=== PATIENT | male | born 1965 | race Two or more races ===

== ENCOUNTER 2023-11-25 14:04 | Outpatient (AMB) | payer OTHER, SELFPAY ==
--- NOTE | 2023-11-25 14:06 | A.OFFVIS_ITS ---
Intake Intake Visit Reasons: rectile dysfunction (confirmed) Intake Note: New Patient presents for initial visit for erectile dysfunction Urology Medications: none Blood Thinner: none Outsole Beveler Required: No Accompanied by: Self / Same As Patient Allergies No Known Allergies Allergy (Verified 11/25/23 22:55) Medication List - Last Reconciled 11/25/23 by SULLY Gibson dulaglutide (Trulicity) mg subcut empagliflozin (Jardiance) 10 mg PO DAILY glipizide ER 10 mg PO BID lisinopril-hydrochlorothiazide 20-25 mg 1 tab PO DAILY HPI HPI Comments History of Present Illness Details Ji is a very pleasant 58-year-old male patient of Dr. Hoffman. He has a past medical history of obesity, heartburn, hypertension, urolithiasis, fatty liver, diabetes mellitus, ED, anxiety, vitamin-D deficiency, and BPH. He presents to the office today as a new patient for his longstanding history of erectile dysfunction. In discussion with the patient today he reports having traveled to [place] approximately 2 years ago at which time he urgently came back due to a severe fungal infection he had been experiencing in his penis. He followed up with [facility] at which time he underwent a circumcision. He discusses feeling frustrated that ever since his circumcision he has been experiencing issues with erectile dysfunction. He reports then following up with [facility] at which time he underwent a redo of his circumcision and recommendations were made for oral therapy treatment of ED. He reports having trialed Cialis, Viagra, and vardenafil with no improvement in obtaining and maintaining erections. He also reports having trialed injection therapy with no benefits. He also discusses having trialed penile pump as well as penile ring. He reports at times he is able to obtain an erection while performing foreplay however it is not adequate for penetration. He does report sexual desire. He otherwise denies any bothersome urinary issues or concerns. He reports be happy with current voiding parameters. Discussed at length potential causes for erectile dysfunction as well as further workup and treatment options. In office urinalysis results reviewed with the patient today. [facility] Medical History Nonspecific reaction to tuberculin skin test without active tuberculosis Obesity Heartburn Family history of malignant neoplasm of digestive organs Hypertension Urolithiasis Bacterial infection due to Helicobacter pylori Benign prostate hyperplasia Pterygium Fatty liver Microalbuminuria Diabetes mellitus type 2 with neurological manifestations Erectile dysfunction due to diseases classified elsewhere Anxiety Personal history of COVID-19 Vitamin D deficiency Controlled diabetes mellitus with renal manifestations Review of Systems Const Reports no additional complaints Eyes Reports as per HPI ENT Reports no additional complaints Card Reports as per HPI Resp Reports no additional complaints GI Reports as per HPI Reports as per HPI Musc Reports no additional complaints Neuro Reports no additional complaints Psych Reports as per HPI Endo Reports as per HPI Chaka/Lymph Reports no additional complaints Aller/Immun Reports no additional complaints Physical Exam Const General: cooperative, healthy appearing, comfortable, no acute distress, well developed, alert and awake Nutritional Appearance: overweight Orientation/consciousness: patient oriented x3 Limitations: no limitations HEENT Head: Yes normal to inspection, Yes normocephalic and Yes atraumatic Ears: hearing grossly normal bilaterally Eyes General: appearance normal, both eyes and all related structures Neck Neck: Yes normal visual inspection and Yes trachea midline Chest Chest palpation & inspection: normal inspection of the chest Resp Effort & Inspection: normal respiratory effort and able to speak in complete sentences Cardio Rate: regular rate GI Inspection: Yes normal to inspection General: Yes no CVA tenderness Back/Spine/Pelvis Back: no CVA tenderness Skin General skin exam: no rashes or lesions noted Neuro General: patient oriented x3 Extrem General: Yes normal to inspection Psych Appearance: grossly normal and well kempt Mental Status: mental status grossly normal Speech and movement: Normal speech and movement present and Clear speech present Affect: normal affect Attitude: cooperative Thought process: Normal thought process present Thought content: Normal thought content present Insight: Fair insight present (Psych) Judgement: Fair judgement present (Psych) Results AMB Urinalysis, Automated UA Leukoctes 0 Elizabeth/uL Last Edit by cocone on 11/25/23 14:35 UA Nitrite Negative Last Edit by cocone on 11/25/23 14:35 UA Urobilinogen 0.2 mg/dL Last Edit by cocone on 11/25/23 14:35 UA Protein 30 mg/dL Last Edit by cocone on 11/25/23 14:35 UA pH 5.5 Last Edit by cocone on 11/25/23 14:35 UA Blood 0 Howie/uL Last Edit by Spring Santosamanda on 11/25/23 14:35 UA Specific Burgaw 1.020 Last Edit by Spring Souza on 11/25/23 14:35 UA Ketone Negative Last Edit by Spring Souza on 11/25/23 14:35 UA Bilirubin 0 mg/dL Last Edit by Spring Souza on 11/25/23 14:35 UA Glucose 1000 mg/dL Last Edit by Spring Souza on 11/25/23 14:35 Results Reviewed Results Reviewed: Laboratory Last Values Urine pH (Auto) 5.5 11/25/23 14:33 Specific Burgaw (Auto) 1.020 11/25/23 14:33 Urine Protein (Auto) 30 mg/dL 11/25/23 14:33 Glucose (UA)(Auto) 1000 mg/dL 11/25/23 14:33 Urine Ketones (Auto) Negative 11/25/23 14:33 Urine Blood (Auto) 0 Howie/uL 11/25/23 14:33 Urine Nitrite (Auto) Negative 11/25/23 14:33 Urine Bilirubin (Auto) 0 mg/dL 11/25/23 14:33 Urine Urobilinogen (Auto) 0.2 mg/dL 11/25/23 14:33 Leukocyte Esterase (Auto) 0 Elizabeth/uL 11/25/23 14:33 Assessment & Plan Assessment & Plan (1) Erectile dysfunction associated with type 2 diabetes mellitus: Code(s): E11.69 - Type 2 diabetes mellitus with other specified complication; N52.1 - Erectile dysfunction due to diseases classified elsewhere Plan In office urinalysis results reviewed with the patient today; as noted above. Discussed at length potential causes of erectile dysfunction. Discussed, stress, educated the importance of managing diabetes for improvement overall health and well-being as well as symptoms of erectile dysfunction. Discussed lifestyle modifications to assist with erectile dysfunction. Will obtain LH, prolactin, testosterone free and total, SHBG, PSA, estradiol, and FSH for further assessment evaluation. Discussed potential for near future penile Doppler for further assessment evaluation. He denies any bothersome urinary issues. He reports be happy with current voiding parameters. Follow-up in 1-2 months with labs to be completed prior; or sooner with any issues, concerns, and or questions. Orders: Orders AMB Urinalysis Automated Today Z13.9 - Encounter for screening, unspecified Lutenizing Hormone Today E11.69 - Type 2 diabetes mellitus with other specified complication, N52.1 - Erectile dysfunction due to diseases classified elsewhere Prolactin Today E11.69 - Type 2 diabetes mellitus with other specified complication, N52.1 - Erectile dysfunction due to diseases classified elsewhere Testosterone, Free/Total Today E11.69 - Type 2 diabetes mellitus with other specified complication, N52.1 - Erectile dysfunction due to diseases classified elsewhere Follicle Stimulating Hormone Today E11.69 - Type 2 diabetes mellitus with other specified complication, N52.1 - Erectile dysfunction due to diseases classified elsewhere Sex Hormone Binding Globulin Today E11.69 - Type 2 diabetes mellitus with other specified complication, N52.1 - Erectile dysfunction due to diseases classified elsewhere PSA,Total (Free>4and<10) Today E11.69 - Type 2 diabetes mellitus with other specified complication, N52.1 - Erectile dysfunction due to diseases classified elsewhere Estradiol Ultra Sensitive Today E11.69 - Type 2 diabetes mellitus with other specified complication, E29.1 - Testicular hypofunction, N52.1 - Erectile dysfunction due to diseases classified elsewhere Patient Instructions: The patient had an opportunity to ask questions regarding the treatment plan. All questions were answered. Physical exam, labs, and imaging were discussed and reviewed in detail. As well as risks, benefits, and discussion of treatment choices. No major barriers to understanding were identified. The patient e xpressed understanding and agreement with the above treatment plan. The patient was made aware they should contact our office by phone for worsening of their current condition, the appearance of new symptoms, or with any questions or concerns. Compliance is encouraged with any medications and follow up testing that is ordered. It is a privilege to be allowed the opportunity to participate in? your urological care.? Again, if you have any questions or concerns If you have any questions or concerns please do not hesitate to contact me. The office is [phone]. This note is constructed using voice recognition software. While every effort has been made to ensure accuracy wildlife science professor errors may have been included. Yours sincerely, SARAH Gibson-KAYLA Coding Level of Care Code New Pt Level 4 (16472) Diagnoses Erectile dysfunction associated with type 2 diabetes mellitus E11.69; N52.1 Time Spent (min) 35
== END 2023-11-25 15:04 | disposition home or self-care (01) ==
PROVIDERS: PCP Internal Medicine; Visit Provider Nurse Practitioner Family
DX: E11.69 Type 2 diabetes mellitus with other specified complication (principal); N52.1 Erectile dysfunction due to diseases classified elsewhere
CPT/HCPCS: 99204

== ENCOUNTER → 2023-11-25 14:04 | Outpatient (BNVA) | payer OTHER, SELFPAY | PROVIDERS: PCP Internal Medicine; Visit Provider Nurse Practitioner Family | DX: E11.69 Type 2 diabetes mellitus with other specified complication (principal); N52.1 Erectile dysfunction due to diseases classified elsewhere | CPT/HCPCS: 81003 ==

== ENCOUNTER 2024-03-10 15:01 | Outpatient (AMB) | payer OTHER, SELFPAY ==
--- NOTE | 2024-03-10 15:32 | MHC.OFFVIS ---
Intake Visit Reasons: follow up/labs Intake Note: Patient is Present for Follow Up Labs Urology Medication: None Antibiotic Allergies: None Blood Thinners: None Denies any urination issues Animal Assisted Therapist Required: No Allergies No Known Allergies Allergy (Verified 03/10/24 20:18) Medication List - Last Reconciled 03/10/24 by SARAH Gibson-KAYLA dulaglutide (Trulicity) mg subcut empagliflozin (Jardiance) 10 mg PO DAILY glipizide ER 10 mg PO BID lisinopril-hydrochlorothiazide 20-25 mg 1 tab PO DAILY tadalafil (Cialis) 5 mg PO DAILY 90 days HPI Comments Details: Ji is a very pleasant 58-year-old male patient of Dr. Hoffman. He has a past medical history of obesity, heartburn, hypertension, urolithiasis, fatty liver, diabetes mellitus, ED, anxiety, vitamin-D deficiency, and BPH. He presents to the office today for follow-up. Of note, patient was seen approximately 3 months ago as a new patient for his longstanding history of erectile dysfunction at which time labs were drawn for further assessment evaluation. These results were reviewed with the patient today. 01/07: Albumin:3.9, PSA: 2.5, FSH 10.5, LH 6.1, Estradiol 25.5 Prolactin 12.5, Testosterone 278, Free testosterone 7.8, Bioavailable Testosterone 166.8, SHBG 18.2 He discusses at length prior to his travel to [place] where he experienced a severe fungal infection to his penis and had to undergo a circumcision followed by a revision of circumcision with [facility] he has since been experiencing erectile dysfunction. He does report being able to obtain somewhat of erection during oral sex however feels he is unable to maintain erections adequate for penetration. He reports having trialed Cialis, Viagra, and vardenafil with no improvement in obtaining and maintaining erections. He also reports having trialed injection therapy with no improvement. He also discusses having trialled penile pump as well as penile ring. He does report sexual desire. He otherwise denies any bothersome urinary issues or concerns. He reports be happy with current voiding parameters. Discussed at length potential causes for erectile dysfunction as well as further workup and treatment options. In office urinalysis results reviewed with the patient today. [facility] Medical History Nonspecific reaction to tuberculin skin test without active tuberculosis Obesity Heartburn Family history of malignant neoplasm of digestive organs Hypertension Urolithiasis Bacterial infection due to Helicobacter pylori Benign prostate hyperplasia Pterygium Fatty liver Microalbuminuria Diabetes mellitus type 2 with neurological manifestations Erectile dysfunction due to diseases classified elsewhere Anxiety Personal history of COVID-19 Vitamin D deficiency Controlled diabetes mellitus with renal manifestations Review of Systems Const Reports no additional complaints Eyes Reports as per HPI ENT Reports no additional complaints Card Reports as per HPI Resp Reports no additional complaints GI Reports as per HPI Reports as per HPI Musc Reports no additional complaints Neuro Reports no additional complaints Psych Reports as per HPI Endo Reports as per HPI Chaka/Lymph Reports no additional complaints Aller/Immun Reports no additional complaints Physical Exam Const General: cooperative, healthy appearing, comfortable, no acute distress, well developed, alert and awake Nutritional Appearance: overweight Orientation/consciousness: patient oriented x3 Limitations: no limitations HEENT Head: Yes normal to inspection, Yes normocephalic and Yes atraumatic Ears: hearing grossly normal bilaterally Eyes General: appearance normal, both eyes and all related structures Neck Neck: Yes normal visual inspection and Yes trachea midline Chest Chest palpation & inspection: normal inspection of the chest Resp Effort & Inspection: normal respiratory effort and able to speak in complete sentences Cardio Rate: regular rate GI Inspection: Yes normal to inspection General: Yes no CVA tenderness Back/Spine/Pelvis Back: no CVA tenderness Skin General skin exam: no rashes or lesions noted Neuro General: patient oriented x3 Extrem General: Yes normal to inspection Psych Appearance: grossly normal and well kempt Mental Status: mental status grossly normal Speech and movement: Normal speech and movement present and Clear speech present Affect: normal affect Attitude: cooperative Thought process: Normal thought process present Thought content: Normal thought content present Insight: Fair insight present (Psych) Judgement: Fair judgement present (Psych) Results AMB Urinalysis, Automated UA Leukoctes 0 Elizabeth/uL Last Edit by HESHAM Kelly on 03/10/24 15:43 UA Nitrite Negative Last Edit by HESHAM Kelly on 03/10/24 15:43 UA Urobilinogen 0.2 mg/dL Last Edit by HESHAM Kelly on 03/10/24 15:43 UA Protein 0 mg/dL Last Edit by Any Dan RMA on 03/10/24 15:43 UA pH 5.5 Last Edit by Any Dan RMA on 03/10/24 15:43 UA Blood 0 Howie/uL Last Edit by Any Dan, RMA on 03/10/24 15:43 UA Specific White 1.020 Last Edit by Any Dan, RMA on 03/10/24 15:43 UA Ketone Negative Last Edit by Any Dan RMA on 03/10/24 15:43 UA Bilirubin 0 mg/dL Last Edit by Any Dan, RMA on 03/10/24 15:43 UA Glucose 1000 mg/dL Last Edit by Any Dan RMA on 03/10/24 15:43 Results Reviewed Results Reviewed: Laboratory Last Values Urine pH (Auto) 5.5 03/10/24 15:41 Specific White (Auto) 1.020 03/10/24 15:41 Urine Protein (Auto) 0 mg/dL 03/10/24 15:41 Glucose (UA)(Auto) 1000 mg/dL 03/10/24 15:41 Urine Ketones (Auto) Negative 03/10/24 15:41 Urine Blood (Auto) 0 Howie/uL 03/10/24 15:41 Urine Nitrite (Auto) Negative 03/10/24 15:41 Urine Bilirubin (Auto) 0 mg/dL 03/10/24 15:41 Urine Urobilinogen (Auto) 0.2 mg/dL 03/10/24 15:41 Leukocyte Esterase (Auto) 0 Elizabeth/uL 03/10/24 15:41 Assessment & Plan Assessment & Plan (1) Erectile dysfunction associated with type 2 diabetes mellitus: Code(s): E11.69 - Type 2 diabetes mellitus with other specified complication; N52.1 - Erectile dysfunction due to diseases classified elsewhere Category: Medical Plan In office urinalysis results reviewed with the patient today; as noted above. Discussed at length potential causes of erectile dysfunction. Discussed, stress, educated the importance of managing diabetes for improvement overall health and well-being as well as symptoms of erectile dysfunction. Discussed lifestyle modifications to assist with erectile dysfunction. Recent LH, prolactin, testosterone free and total, SHBG, PSA, estradiol, and FSH labs reviewed with the patient today as noted above. Discussed potential for near future penile Doppler for further assessment evaluation; however he would like to think about this. He denies any bothersome urinary issues. He reports be happy with current voiding parameters. Start 5 mg of Cialis daily as discussed and prescribed. Will obtain testosterone free and total in 3 months Follow-up in 3 months with labs to be completed prior; or sooner with any issues, concerns, and or questions. Orders: Orders AMB Urinalysis Automated Today Z13.9 - Encounter for screening, unspecified Testosterone, Free/Total 3 Months E11.69 - Type 2 diabetes mellitus with other specified complication, N52.1 - Erectile dysfunction due to diseases classified elsewhere Medications: New tadalafil (Cialis) [id number] [facility] [id number] Member [id number] 5 mg PO DAILY 90 days 90 tabs 0RF Patient Instructions: The patient had an opportunity to ask questions regarding the treatment plan. All questions were answered. Physical exam, labs, and imaging were discussed and reviewed in detail. As well as risks, benefits, and discussion of treatment choices. No major barriers to understanding were identified. The patient expressed understanding and agreement with the above treatment plan. The patient was made aware they should contact our office by phone for worsening of their current condition, the appearance of new symptoms, or with any questions or concerns. Compliance is encouraged with any medications and follow up testing that is ordered. It is a privilege to be allowed the opportunity to participate in? your urological care.? Again, if you have any questions or concerns If you have any questions or concerns please do not hesitate to contact me. The office is [phone]. This note is constructed using voice recognition software. While every effort has been made to ensure accuracy cisco engineer errors may have been included. Yours sincerely, SULLY Gibson Coding Level of Care Code Est Pt Level 4 (09862) Diagnoses Erectile dysfunction associated with type 2 diabetes mellitus E11.69; N52.1
== END 2024-03-10 16:13 | disposition home or self-care (01) ==
PROVIDERS: PCP Internal Medicine; Visit Provider Nurse Practitioner Family
DX: E11.69 Type 2 diabetes mellitus with other specified complication (principal); N52.1 Erectile dysfunction due to diseases classified elsewhere; Z13.9 Encounter for screening, unspecified
CPT/HCPCS: 99214

== ENCOUNTER → 2024-03-10 15:01 | Outpatient (BNVA) | payer OTHER, SELFPAY | PROVIDERS: PCP Internal Medicine; Visit Provider Nurse Practitioner Family | DX: E11.69 Type 2 diabetes mellitus with other specified complication (principal); N52.1 Erectile dysfunction due to diseases classified elsewhere | CPT/HCPCS: 81003 ==